=== PATIENT | male | born 1965 | race Hispanic/Latino ===

== ENCOUNTER 2017-06-04 18:23 | Emergency (ER) | payer BC ==
[2017-06-04 18:43] VITALS: TEMP 98.4
--- NOTE | 2017-06-04 19:34 | ED PDOC ---
HPI: SOB/CHF/COPD Time Seen by Provider: 06/04/17 18:39 Chief Complaint (Nursing): Shortness Of Breath History Per: Patient History/Exam Limitations: no limitations Onset/Duration Of Symptoms: Gradual (approx 5 hours ago) Current Symptoms Are (Timing): Still Present Severity: Mild Associated Symptoms: Dizziness, Light-headedness, Tingling In Hands Or Face. 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 Pt states he possible ate a marijuana cookie at 2pm today. Pt states he while eating at a restaurant at 3pm he had a syncopal episode. no gtc activity no bowel or bladder retention or incontinece. Pt states since he has been feeling dizzy and anxious. Past Medical History Reviewed: Historical Data, Nursing Documentation, Vital Signs Vital Signs: Last Vital Signs Temp 98.4 F 06/04/17 18:27 Pulse 105 H 06/04/17 18:27 Resp 20 06/04/17 18:27 BP 147/78 06/04/17 18:27 Pulse Ox 100 06/04/17 18:56 - Medical History PMH: No Chronic Diseases - Family History Family History: States: Unknown Family Hx - Living Arrangements Living Arrangements: With Family - Social History Current smoker - smoking cessation education provided: No - Allergies Allergies/Adverse Reactions: Allergies Allergy/AdvReac Type Severity Reaction Status Date / Time No Known Allergies Allergy Verified 06/04/17 18:42 Review of Systems ROS Statement: Except As Marked, All Systems Reviewed And Found Negative Constitutional: Negative for: Fever, Chills Cardiovascular: Positive for: Palpitations, Light Headedness. Negative for: Chest Pain Respiratory: Positive for: Shortness of Breath. Negative for: Cough Gastrointestinal: Negative for: Nausea, Vomiting, Abdominal Pain Neurological: Positive for: Headache, Dizziness. Negative for: Weakness, Numbness Physical Exam - Reviewed Nursing Documentation Reviewed: Yes Vital Signs Reviewed: Yes - Physical Exam Appears: Positive for: Well, Uncomfortable Head Exam: Positive for: ATRAUMATIC, NORMAL INSPECTION, NORMOCEPHALIC Eye Exam: Positive for: Normal appearance, EOMI, PERRL Neck: Positive for: Normal, Painless ROM, Supple Cardiovascular/Chest: Positive for: Regular Rate, Rhythm, Chest Non Tender. Negative for: Edema, Murmur, Bradycardia, Tachycardia, Ectopy, Friction Rub, Irregularly Irregular Respiratory: Positive for: Normal Breath Sounds. Negative for: Decreased Breath Sounds, Accessory Muscle Use, Crackles, Rales, Rhonchi, Stridor, Wheezing , Respiratory Distress Pulses-Radial (L): 2+ Pulses-Radial (R): 2+ Gastrointestinal/Abdominal: Positive for: Normal Exam, Bowel Sounds, Soft. Negative for: Tenderness Extremity: Positive for: Normal ROM. Negative for: Tenderness, Pedal Edema, Calf Tenderness, Deformity, Swelling Neurologic/Psych: Positive for: Alert, napper grinder II-XII, Oriented, Mood/Affect (calm) , Cerebellar Tests (ftn and hts nml). Negative for: Motor/Sensory Deficits, Aphasia, Facial Droop Comments: nihss 0 - ECG O2 Sat by Pulse Oximetry: 100 Disposition - Clinical Impression Clinical Impression: Syncope - Disposition Disposition Time: 19:38 Condition: STABLE Patient Signed Over To: Elvin Correa
[2017-06-04 19:57] LABS: BASO # 0.1 K/uL (0.0-0.2); BASO % 0.7 % (0.0-2.0); EOS # 0.2 K/uL (0.0-0.7); EOS % 1.4 % (0.0-4.0); LYMPH # 1.6 K/uL (1.0-4.3); LYMPH % 11.6 % (20.0-40.0); MEAN CELL VOLUME 93.2 fl (80.0-94.0); MEAN CORPUSCULAR HEMOGLOBIN 31.1 pg (27.0-31.0); MEAN CORPUSCULAR HGB CONC 33.4 g/dL (33.0-37.0); MONO # 0.7 K/uL (0.0-0.8); MONO % 5.3 % (0.0-10.0); NEUT # 11.3 K/uL (1.8-7.0); RED CELL DISTRIBUTION WIDTH 12.3 % (11.5-14.5); WHITE BLOOD COUNT 13.9 K/uL (4.8-10.8)
[2017-06-04 20:05] LABS: RBC URINE 1 /hpf (0-3); URINE BILIRUBIN NEGATIVE (NEGATIVE); URINE BLOOD NEGATIVE (NEGATIVE); URINE COLOR YELLOW (YELLOW); URINE GLUCOSE (UA) 50 mg/dL (Normal); URINE KETONE 80 mg/dL (NEGATIVE); URINE LEUKOCYTE ESTERASE NEG Leu/uL (Negative); URINE PROTEIN NEGATIVE (NEGATIVE); URINE UROBILINOGEN 0.2-1.0 mg/dL (0.2-1.0); WBC URINE 2 /hpf (0-5)
[2017-06-04 20:08] LABS: ALB/GLOB RATIO 1.6 (1.0-2.1); ALKALINE PHOSPHATASE 72 U/L (38-126); ALT/SGPT 36 U/L (21-72); AST/SGOT 27 U/L (17-59); BILIRUBIN,TOTAL 0.4 mg/dl (0.2-1.3); BLOOD UREA NITROGEN 20 mg/dl (9-20); CALCIUM 9.3 mg/dL (8.4-10.2); CARBON DIOXIDE 20 mmol/L (22-30); CHLORIDE 101 mmol/L (98-107); GFR AFRICAN-AMERICAN > 60; GLUCOSE,RANDOM 147 mg/dL (75-110); LIPASE 69 U/L (23-300); MAGNESIUM 1.6 MG/DL (1.6-2.3); SODIUM 134 mmol/l (132-148); TOTAL PROTEIN 6.9 G/DL (6.3-8.2)
[2017-06-04 20:09] LABS: PARTIAL THROMBOPLASTIN TIME 27.4 Seconds (25.6-37.1)
[2017-06-04] MEDS ORDERED: Sodium Chloride 0.9% 1,000 ML IV ONE (20:09)
--- NOTE | 2017-06-04 20:15 | ED PDOC ---
- Laboratory Results Result Diagrams: 06/04/17 19:53 06/04/17 19:53 - ECG O2 Sat by Pulse Oximetry: 100 Medical Decision Making Medical Decision Makin:00 Patient endorsed to me by Dr. Dutta pending CT Head and labs. CT Head FINDINGS: Brain: No acute intracranial hemorrhage. No significant white matter disease. No edema. Ventricles: No significant ventriculomegaly. Bones: No acute displaced fracture. Sinuses: Mucoperiosteal thickening within the bilateral ethmoid sinuses. Remaining visualized sinuses are unremarkable. Mastoid air cells: Unremarkable as visualized. No mastoid effusion. IMPRESSION: No acute intracranial hemorrhage, or suspicious mass effect. Inflammatory sinus disease. 10PM: PT. seen at bedside, states he's feeling significantly better. 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 Will discharge patient with return precautions such as worsening shortness of breath, chest pain, or other concerning symptoms. Scribe Attestation: Documented by Claudette Monge, acting as a scribe for Elvin Correa MD. Provider Scribe Attestation: All medical record entries made by the Scribe were at my direction and personally dictated by me. I have reviewed the chart and agree that the record accurately reflects my personal performance of the history, physical exam, medical decision making, and the department course for this patient. I have also personally directed, reviewed, and agree with the discharge instructions and disposition. Disposition - Clinical Impression Clinical Impression: Syncope, Marijuana use - POA Present On Arrival: None - Disposition Referrals: [facility] [Outside] Disposition: Routine/Home Disposition Time: 21:58 Condition: IMPROVED Instructions: Syncope (ED), Cannabis Abuse (ED) Forms: [employer] (Surinamese)
[2017-06-04 22:23] VITALS: BP 153/87; PULSE 83; RESP 16; O2SAT 98
--- NOTE | 2017-06-05 09:28 | CT ---
PROCEDURE: CT HEAD WITHOUT CONTRAST. HISTORY: dizziness COMPARISON: None available. TECHNIQUE: Axial computed tomography images were obtained through the head/brain without intravenous contrast. Radiation dose: Total exam DLP = mGy-cm. This CT exam was performed using one or more of the following dose reduction techniques: Automated exposure control, adjustment of the mA and/or kV according to patient size, and/or use of iterative reconstruction technique. FINDINGS: HEMORRHAGE: No intracranial hemorrhage. BRAIN: No mass effect or edema. No atrophy or chronic microvascular ischemic changes. VENTRICLES: Unremarkable. No hydrocephalus. CALVARIUM: Unremarkable. PARANASAL SINUSES: Ethmoid sinus disease MASTOID AIR CELLS: Unremarkable as visualized. No inflammatory changes. OTHER FINDINGS: None. IMPRESSION: No intracranial hemorrhage.
--- NOTE | 2017-06-05 11:20 | RAD ---
PROCEDURE: CHEST RADIOGRAPH, 1 VIEW HISTORY: sob COMPARISON: None available. FINDINGS: LUNGS: Clear. PLEURA: No pneumothorax or pleural fluid seen. CARDIOVASCULAR: Normal. OSSEOUS STRUCTURES: No significant abnormalities. VISUALIZED UPPER ABDOMEN: Normal. OTHER FINDINGS: None. IMPRESSION: No active disease.
--- NOTE | 2017-06-05 11:55 | CARD ---
APPROVED REPORT EKG Measurement Heart [id number] <Conclusion> Sinus tachycardia Otherwise normal ECG
== END 2017-06-04 22:40 | disposition home or self-care (01) ==
LOC: H.ER 18:23
DX: R55 Syncope and collapse (principal); F12.90 Cannabis use, unspecified, uncomplicated
CPT/HCPCS: 70450; 71010; 80053; 81003; 83690; 83735; 83880; 84484; 85025; 85378; 85610; 85730; 93005; 99285; G0480